=== PATIENT | female | born 1970 | race African-American/Black ===

== ENCOUNTER 2018-03-15 13:59 | Emergency (ER) | payer MEDICAID ==
[~2018-03-15] VITALS: Ht 167.6 cm; Wt 85.0 kg
[2018-03-15] MEDS ORDERED: METOCLOPRAMIDE HCL 10MG TABLET PO ONE (15:00)
[2018-03-15] MEDS ORDERED: KETOROLAC 30MG/ML VIAL IM ONE (15:00)
[2018-03-15 15:35] VITALS: BP 161/93
== END 2018-03-15 16:27 | disposition home or self-care (01) ==
LOC: ER 14:21
DX: S09.90XA Unspecified injury of head, initial encounter (principal); W22.8XXA Striking against or struck by other objects, initial encounter; Y93.89 Activity, other specified; Y92.89 Other specified places as the place of occurrence of the external cause; Y99.8 Other external cause status
CPT/HCPCS: 81025; 96372; 99283; J1885; Z7610; J8597

== ENCOUNTER 2021-01-18 16:03 | Emergency (ER) | payer MEDICAID ==
[~2021-01-18] VITALS: Ht 165.1 cm; Wt 101.0 kg
[2021-01-18 17:37] LABS: CHLORIDE 105 mEq/L (98-107)
[2021-01-18 17:39] LABS: BASOPHILS % 0.6 % (0.0-2.0); EOSINOPHILS % 1.3 % (0.0-5.0); HEMATOCRIT. 36.3 % (36.0-48.0); HEMOGLOBIN. 12.8 g/dL (12.0-16.0); LYMPHOCYTES % 28.1 % (20.0-50.0); MEAN CORPUSCULAR HEMOGLOBIN 32.2 pg (28.0-32.0); MEAN CORPUSCULAR VOLUME 91.4 fL (81.0-99.0); MEAN PLATELET VOLUME 8.4 fl (7.4-10.4); MONOCYTES % 4.2 % (2.0-8.0); NEUTROPHILS % 65.8 % (40.0-76.0); PLATELET 345 x1000/uL (130-400); RED BLOOD CELL COUNT 3.98 mill/uL (4.2-5.4); RED CELL DISTRIBUTION WIDTH 12.7 % (11.6-14.6)
[2021-01-18 22:48] VITALS: BP 152/88
== END 2021-01-18 22:48 | disposition home or self-care (01) ==
LOC: ER 16:03
DX: R07.89 Other chest pain (principal); I10 Essential (primary) hypertension
CPT/HCPCS: 36415; 71045; 80048; 84484; 85025; 85379; 93005; 99285

== ENCOUNTER 2021-10-20 17:12 | Emergency (ER) | payer MEDICAID ==
[~2021-10-20] VITALS: Ht 165.1 cm; Wt 105.0 kg
[2021-10-20] MEDS ORDERED: ACETAMINOPHEN 325MG TABLET PO ONE (17:30)
[2021-10-20] MEDS ORDERED: LIDOCAINE 5% PATCH TOP SCH (17:30)
[2021-10-20] MEDS ORDERED: ACET-2708 MT (17:31)
[2021-10-20] MEDS ORDERED: BACL-141 MT (17:31)
[2021-10-20] MEDS ORDERED: LIDO700A15 TP (17:31)
[2021-10-20 17:44] VITALS: BP 165/86
== END 2021-10-20 18:00 | disposition home or self-care (01) ==
LOC: ER 17:12
DX: S13.4XXA Sprain of ligaments of cervical spine, initial encounter (principal); S29.012A Strain of muscle and tendon of back wall of thorax, initial encounter; V42.5XXA Car driver injured in collision with two- or three-wheeled motor vehicle in traffic accident, initial encounter; Y93.89 Activity, other specified; Y92.488 Other paved roadways as the place of occurrence of the external cause
CPT/HCPCS: 99283

== ENCOUNTER 2023-01-07 10:53 | Emergency (ER) | payer MEDICAID ==
[~2023-01-07] VITALS: Ht 162.6 cm; Wt 101.0 kg
[~2023-01-07 10:53] MED LIST: ACET-2708 MT; BACL-141 MT; LIDO700A15 TP
[2023-01-07 10:56] VITALS: BP 151/90
[2023-01-07] MEDS ORDERED: GLYC30DR4 RIGHTEYE (11:52)
== END 2023-01-07 12:09 | disposition home or self-care (01) ==
LOC: ER 10:53
DX: H10.9 Unspecified conjunctivitis (principal); Z79.899 Other long term (current) drug therapy; H57.89 Other specified disorders of eye and adnexa
CPT/HCPCS: 99282

== ENCOUNTER 2025-01-23 20:43 | Emergency (ER) | payer MEDICAID ==
[~2025-01-23] VITALS: Ht 165.1 cm; Wt 108.0 kg
[~2025-01-23 20:43] MED LIST changes: +GLYC30DR4 RIGHTEYE; +LIDO-53 TP; -LIDO700A15 TP
[2025-01-23 20:48] VITALS: TEMP 36.9; O2SAT 98
[2025-01-23 20:50] VITALS: O2SAT 100
[2025-01-24] MEDS ORDERED: NAPR-1176 MT (00:59)
[2025-01-24] MEDS ORDERED: LIDO-53 TP (00:59)
[2025-01-24 01:39] VITALS: BP 166/70; PULSE 80; RESP 16
[2025-01-24] MEDS: KETOROLAC 15MG/ML VIAL IM ONE (01:39)
[2025-01-24] MEDS: LIDOCAINE 5% PATCH TOP SCH (01:39)
== END 2025-01-24 01:42 | disposition home or self-care (01) ==
LOC: ER 20:43
DX: M25.512 Pain in left shoulder (principal); Z79.899 Other long term (current) drug therapy; X50.0XXA Overexertion from strenuous movement or load, initial encounter; Y93.89 Activity, other specified; Y92.89 Other specified places as the place of occurrence of the external cause; Y99.8 Other external cause status
CPT/HCPCS: 99283; 73030; 96372; J1885; A4565

== ENCOUNTER 2025-04-19 21:02 | Emergency (ER) | payer MEDICAID ==
[~2025-04-19] VITALS: Ht 162.6 cm; Wt 108.0 kg
[~2025-04-19 21:02] MED LIST changes: +NAPR-1176 MT
[2025-04-19 21:35] VITALS: TEMP 36.8; O2SAT 98
[2025-04-19] MEDS ORDERED: DICL100G58 TP (23:01)
[2025-04-19 23:23] VITALS: BP 138/88; PULSE 60; RESP 14; O2SAT 99
== END 2025-04-19 23:27 | disposition home or self-care (01) ==
LOC: ER 21:02
DX: M65.4 Radial styloid tenosynovitis [de Quervain] (principal); G58.8 Other specified mononeuropathies; Z71.82 Exercise counseling; Z79.1 Long term (current) use of non-steroidal anti-inflammatories (NSAID)
CPT/HCPCS: 99282